=== PATIENT | female | born 1950 | race Caucasian/White ===

== ENCOUNTER → 2017-03-05 | Outpatient (CLI) | payer BC ==
[~2017-03-05] MED LIST: ASPI81TA21 PO; CALCTAB7 PO; CHOL100027 PO; CYAN500T13 PO; DIVA500T59 PO; ESTR0.3T PO; FOLI-11 PO; LAMO25TA PO; LEVO50TA PO; METO-217 PO; PANT40TA PO; RANI300T2 PO; SIMV5TAB2 PO; ULT50X PO; [UNRECOGNIZED DRUG - CODE] PO
[2017-03-05 12:23] LABS: MEAN CELL VOLUME 101.3 fL (80-100); MEAN CORPUSCULAR HEMOGLOBIN 33.8 pg (25-34); MEAN CORPUSCULAR HGB CONC 33.3 g/dl (32-36); PLATELET COUNT 271 K/uL (130-400); RED BLOOD COUNT 3.85 M/uL (4.2-5.4); WHITE BLOOD COUNT 7.46 K/uL (4.8-10.8)
[2017-03-05 13:19] LABS: URINE APPEARANCE CLEAR (CLEAR); URINE BILIRUBIN NEG (NEG); URINE COLOR YELLOW; URINE EPITHELIAL CELL AUTO 20-30 /lpf (0-5); URINE NITRITE NEG (NEG); URINE SPECIFIC GRAVITY 1.022 (1.000-1.030); UROBILINOGEN NEG (NEG)
[2017-03-05 13:23] LABS: MANUAL MICROSCOPIC REQUIRED? NO; REVIEW REQ? NO
[2017-03-05 14:19] LABS: ALT/SGPT 22 U/L (12-78); AST/SGOT 20 U/L (15-37); BLOOD UREA NITROGEN 23 mg/dl (7-18); CALCIUM 9.2 mg/dl (8.5-10.1); CARBON DIOXIDE 29 mmol/L (21-32); CHLORIDE 108 mmol/L (98-107); GLUCOSE 83 mg/dl (70-99); POTASSIUM 4.8 mmol/L (3.5-5.1); SODIUM 143 mmol/L (136-145)
[2017-03-05 14:31] LABS: ALB/GLOB RATIO 0.9 (0.9-2); ALKALINE PHOSPHATASE 63 U/L (45-117); CHOLESTEROL 169 mg/dl (0-200); CHOLESTEROL/HDL RATIO 2.8; HDL CHOLESTEROL 61 mg/dl; LDL CHOLESTEROL CALCULATED 79 mg/dl; TRIGLYCERIDES 143 mg/dl (0-150); VERY LOW DENSITY LIPOPROT CALC 29 mg/dl
[2017-03-05 16:46] LABS: URINE PROTIEN/CREAT RATIO 0.1 (0-0.2); URINE TOTAL PROTEIN 14.2 mg/dl (0-11.9)
== END | disposition home or self-care (01) ==
LOC: C.LABBFT 10:21
PROVIDERS: ATTEND Internal Medicine Nephrology
DX: E55.9 Vitamin D deficiency, unspecified (principal); E78.5 Hyperlipidemia, unspecified; F30.9 Manic episode, unspecified; N18.3 Chronic kidney disease, stage 3 (moderate)

== ENCOUNTER → 2017-06-19 | Outpatient (CLI) | payer BC ==
[2017-06-19 12:17] LABS: BASO % 0.5 %; BASO ABS # 0.04 K/uL (0-0.2); COMPLETE YES; EOS % 10.3 %; IG% 0.2 %; LYMPH % 42.6 %; LYMPH ABS # 3.64 K/uL (1.2-3.4); MEAN CELL VOLUME 101.6 fL (80-100); MEAN CORPUSCULAR HGB CONC 33.4 g/dl (32-36); MEAN PLATELET VOLUME 11.5 fL (7.4-10.4); MONO % 10.8 %; NEUT % 35.6 %; PLATELET COUNT 252 K/uL (130-400); RED BLOOD COUNT 3.74 M/uL (4.2-5.4); WHITE BLOOD COUNT 8.54 K/uL (4.8-10.8)
[2017-06-19 12:33] LABS: ALT/SGPT 23 U/L (12-78); AST/SGOT 20 U/L (15-37); BLOOD UREA NITROGEN 22 mg/dl (7-18); BUN/CREATININE RATIO 15.8 (10-20); CALCIUM 8.9 mg/dl (8.5-10.1); CARBON DIOXIDE 26 mmol/L (21-32); CHLORIDE 107 mmol/L (98-107); GLUCOSE 87 mg/dl (70-99); POTASSIUM 4.6 mmol/L (3.5-5.1); SODIUM 140 mmol/L (136-145)
[2017-06-19 12:35] LABS: ALB/GLOB RATIO 0.9 (0.9-2); ALKALINE PHOSPHATASE 64 U/L (45-117)
--- NOTE | 2017-07-17 09:39 | CODING QUERY NO DIAGNOSIS ---
TREATMENT RENDERED WITHOUT A DIAGNOSIS To promote full compliance with coding requirements relating to patient care, physician participation is requested in all cases of lean process deployment consultant uncertainty. Please assist us with providing a diagnosis/symptom for the test(s) below: A diagnosis/symptom was not documented on your Order. A valid diagnosis/symptom is required to bill all insurances. Please remember that we are unable to code a diagnosis of rule out, probable, possible, questionable, or suspected. Tests that require a diagnosis: * CMP DIAGNOSIS: * CBC W/ AUTO DIFF DIAGNOSIS: * VALPROIC ACID (DEPAKOTE) DIAGNOSIS: Provider Signature: Date: Thank you Zahraa Muir [employer] Once completed, please kindly fax back to [phone] For questions please call [phone]
== END | disposition home or self-care (01) ==
LOC: C.LAB 10:42
PROVIDERS: ATTEND Psychiatry & Neurology Psychiatry
DX: Z01.89 Encounter for other specified special examinations (principal)

== ENCOUNTER → 2017-07-24 | Outpatient (CLI) | payer BC ==
--- NOTE | 2017-07-24 13:40 | MAMMOGRAPHY REPORT ---
BILATERAL DIGITAL SCREENING MAMMOGRAM WITH CAD: 07/24/2017 CLINICAL HISTORY: Routine screening. Patient has no complaints. TECHNIQUE: Current study was also evaluated with a Computer Aided Detection (CAD) system. Bilateral CC and MLO views were obtained. COMPARISON: Comparison is made to exams dated: 07/22/2016 mammogram, 07/17/2015 mammogram, 06/07/2014 ma mmogram, 04/21/2012 mammogram, 04/02/2011 mammogram, and 02/21/2010 mammogram - [facility] nter. BREAST COMPOSITION: There are scattered areas of fibroglandular density in both breasts. FINDINGS: No suspicious masses, calcifications, or areas of architectural distortion are noted in ei ther breast. There has been no significant interval change compared to prior exams. IMPRESSION: ACR BI-RADS CATEGORY 1: NEGATIVE There is no mammographic evidence of malignancy. A 1 year screening mammogram is recommended. The pa tient will receive written notification of the results. Approximately 10% of breast cancers are not detected with mammography. A negative mammographic report should not delay biopsy if a clinically suggestive mass is present. Deysi Roman M.D. /:07/24/2017 10:47:26 Manual Arts Therapist: Alysha SOUZA)([place]as), [facility] letter sent: Normal 1/2 BI-RADS Code: ACR BI-RADS Category 1: Negative
== END | disposition home or self-care (01) ==
LOC: C.MAMM 09:40
PROVIDERS: ATTEND Obstetrics & Gynecology
DX: Z12.31 Encounter for screening mammogram for malignant neoplasm of breast (principal)

== ENCOUNTER → 2017-11-20 | Outpatient (CLI) | payer BC | END | disposition home or self-care (01) | LOC: C.LABBFT 10:33 | PROVIDERS: ATTEND Internal Medicine | DX: E03.9 Hypothyroidism, unspecified (principal) ==

== ENCOUNTER → 2018-01-29 | Outpatient (CLI) | payer BC ==
[2018-01-29 12:19] LABS: BASO % 0.7 %; BASO ABS # 0.06 K/uL (0-0.2); EOS % 9.1 %; EOS ABS # 0.77 K/uL (0-0.5); HEMATOCRIT 40.2 % (37-47); HEMOGLOBIN 13.7 g/dL (12.0-16.0); IG# 0.01 K/uL (0.00-0.02); LYMPH % 42.5 %; MEAN CELL VOLUME 100.5 fL (80-100); MEAN CORPUSCULAR HEMOGLOBIN 34.3 pg (25-34); MEAN CORPUSCULAR HGB CONC 34.1 g/dl (32-36); MEAN PLATELET VOLUME 11.1 fL (7.4-10.4); MONO ABS # 0.85 K/uL (0.11-0.59); NEUT % 37.6 %; NEUT ABS # 3.19 K/uL (1.4-6.5); PLATELET COUNT 297 K/uL (130-400); RED CELL DISTRIBUTION WIDTH CV 14.2 % (11.5-14.5); RED CELL DISTRIBUTION WIDTH SD 52.4 fL (36.4-46.3); WHITE BLOOD COUNT 8.48 K/uL (4.8-10.8)
== END | disposition home or self-care (01) ==
LOC: C.LAB 09:56
PROVIDERS: ATTEND Psychiatry & Neurology Psychiatry
DX: F31.9 Bipolar disorder, unspecified (principal)

== ENCOUNTER → 2018-02-09 | Outpatient (CLI) | payer BC ==
--- NOTE | 2018-02-09 09:40 | DIAGNOSTIC IMAGING REPORT ---
CHEST 2 VIEWS ROUTINE CLINICAL HISTORY: R05 Cough COMPARISON STUDY: 02/06/2016 FINDINGS: The heart is the upper limits of normal in size. There is aortic tortuosity. There is no failure. There are minimal left lower lobe airspace opacity suspicious for a pneumonitis given the clinical history of cough. There are no pleural effusions. Postsurgical changes are present within the cervical spine.[ IMPRESSION: Minimal left basilar airspace opacities, suspicious for a pneumonia given the history of cough. Clinical and radiographic follow-up is recommended. Electronically signed by: Truman Zhong M.D. 02/09/2018 9:38 AM Dictated Date/Time: 02/09/2018 9:33 AM
== END | disposition home or self-care (01) ==
LOC: C.RAD1850 09:12
PROVIDERS: ATTEND Nurse Practitioner
DX: R05 Cough (principal)

== ENCOUNTER → 2018-03-03 | Outpatient (CLI) | payer BC ==
[~2018-03-03] MED LIST changes: +ASPI-319 PO; -ASPI81TA21 PO
--- NOTE | 2018-03-03 15:02 | DIAGNOSTIC IMAGING REPORT ---
TWO VIEW CHEST CLINICAL HISTORY: Follow-up pneumonia. FINDINGS: PA and lateral chest radiographs are compared to study dated 02/09/2018. The cardiomediastinal silhouette is unremarkable. Chronic interstitial thickening is similar to previous. Left basilar opacities have resolved from 02/09/2018. No airspace consolidation or pleural effusion is identified. There is no pneumothorax. The skeletal structures are osteopenic. The bony thorax appears intact. Degenerative change is noted in the thoracic spine. Fusion hardware is seen in the lower cervical spine. IMPRESSION: 1. No active disease in the chest. 2. Left basilar consolidation has resolved from 02/09/2018 Electronically signed by: Higinio Jarrell M.D. 03/03/2018 3:01 PM Dictated Date/Time: 03/03/2018 3:00 PM
[2018-03-03 15:42] LABS: HEMATOCRIT 36.5 % (37-47); HEMOGLOBIN 12.2 g/dL (12.0-16.0); MEAN CELL VOLUME 100.6 fL (80-100); MEAN CORPUSCULAR HEMOGLOBIN 33.6 pg (25-34); MEAN CORPUSCULAR HGB CONC 33.4 g/dl (32-36); MEAN PLATELET VOLUME 10.5 fL (7.4-10.4); PLATELET COUNT 240 K/uL (130-400); RED CELL DISTRIBUTION WIDTH CV 14.9 % (11.5-14.5); RED CELL DISTRIBUTION WIDTH SD 54.5 fL (36.4-46.3); WHITE BLOOD COUNT 7.16 K/uL (4.8-10.8)
[2018-03-03 16:22] LABS: ALBUMIN 3.5 gm/dl (3.4-5.0); BLOOD UREA NITROGEN 24 mg/dl (7-18); CALCIUM 9.2 mg/dl (8.5-10.1); CARBON DIOXIDE 29 mmol/L (21-32); CREATININE 1.43 mg/dl (0.60-1.20); GLUCOSE 92 mg/dl (70-99); POTASSIUM 4.3 mmol/L (3.5-5.1); SODIUM 138 mmol/L (136-145)
== END | disposition home or self-care (01) ==
LOC: C.RAD1850 14:37
PROVIDERS: ATTEND Internal Medicine Nephrology
DX: J18.9 Pneumonia, unspecified organism (principal); E55.9 Vitamin D deficiency, unspecified; I12.9 Hypertensive chronic kidney disease with stage 1 through stage 4 chronic kidney disease, or unspecified chronic kidney disease; N18.3 Chronic kidney disease, stage 3 (moderate); E21.3 Hyperparathyroidism, unspecified

== ENCOUNTER → 2018-06-16 | Outpatient (CLI) | payer BC | END | disposition home or self-care (01) | LOC: C.LABBFT 09:43 | PROVIDERS: ATTEND Physician Assistant Medical | DX: E03.9 Hypothyroidism, unspecified (principal) ==